=== PATIENT | female | born 1945 | race Caucasian/White ===

== ENCOUNTER 2018-07-29 14:59 | Outpatient (CLI) | payer MEDICARE, BC ==
--- NOTE | 2018-07-29 15:44 | RAD ---
CERVICAL SPINE: INDICATIONS: Neck pain. TECHNIQUE: Lateral views obtained in neutral, flexion, and extension positions. FINDINGS: The cervical vertebrae maintain height. Disk spaces are preserved. In the neutral position, there i s slight anterolisthesis at C5-C6, measured at approximately 2 mm. This does exacerbate with flexion , where it measures approximately 4 mm. It reduces slightly with extension. Mild degenerative spurring at C5, C6, and C7. Mild facet hypertrophy. IMPRESSION: There are degenerative changes of the cervical spine, as described. Mild anterolisthesis at C5-C6, a s described. POS: [facility]
--- NOTE | 2018-07-29 15:54 | MRI ---
MR CERVICAL SPINE WITHOUT CONTRAST INDICATION: 72-year-old female with neck pain and bilateral hand numbness TECHNIQUE: Multiplanar multisequence MR images were obtained of the cervical spine without contrast. COMPARISON: None FINDINGS: Posterior fossa: Within normal limits. Bone marrow signal intensity: Normal Spinal alignment: Normal. Craniocervical junction: Normal appearing. Prevertebral and perivertebral soft tissues: Visualized soft tissues appear within normal limits. Vertebral levels: C2-C3: No appreciable central canal or neuroforaminal narrowing. C3-4: There is severe left and mild right facet joint degenerative change. There is uncal vertebral h ypertrophy. There is moderate left neural foraminal narrowing. C4-5: There is uncovertebral hypertrophy and facet joint degenerative change inducing moderate left neural foraminal narrowing. C5-C6: There is a left foraminal protrusion inducing moderate left neural foraminal narrowing. There is moderate to severe left and mild right facet joint degenerative change. C6-C7:, There is moderate to severe left and mild right facet joint degenerative change. There is no appreciable central canal or neural foraminal narrowing. C7-T1: There is severe facet joint degenerative change. There is grade 1 anterolisthesis. IMPRESSION: 1. Multilevel spondylosis of the cervical spine. 2. Moderate left neural foraminal narrowing at C3-4. 3. Moderate left neural foraminal narrowing at C4-5. 4. Moderate moderate left neural foraminal narrowing at C5-6.
== END 2018-07-29 15:00 | disposition home or self-care (01) ==
LOC: SCSMRI 14:59
PROVIDERS: ATTEND Neurological Surgery
DX: M47.22 Other spondylosis with radiculopathy, cervical region (principal); M43.12 Spondylolisthesis, cervical region; M48.02 Spinal stenosis, cervical region
CPT/HCPCS: 72040; 72141

== ENCOUNTER 2019-07-27 05:51 | Outpatient (CLI) | payer MEDICARE, BC, OTHER ==
[2019-07-27 12:36] LABS: Hemoglobin 13.7 g/dL (12.0-16.0); Mean Corpuscular HGB CONC 33.1 g/dL (32.0-36.0); Mean Corpuscular Hemoglobin 31.2 pg (27.0-31.0); Mean Corpuscular Volume 94.3 fL (78.0-98.0); Mean Platelet Volume 7.3 fL (7.4-10.4); Platelet Count 294 thou/uL (130-400); RBC Distribution Width 11.5 % (11.5-14.5); Red Blood Cell (RBC) Count 4.38 mill/uL (4.20-5.40); White Blood Cell (WBC) Count 7.9 thou/uL (4.8-10.8)
[2019-07-27 12:45] LABS: PTT 24.2 SEC (22.9-36.1); Prothrombin Time 12.7 sec (12.0-14.7)
[2019-07-27 12:57] LABS: Anion Gap 16 mmol/L (10-20); BUN (Urea Nitrogen) 12 mg/dL (9.8-20.1); Calc. Creatinine Clearance 0 mL/min (70-130); Calcium 9.3 mg/dL (7.8-10.44); Carbon Dioxide 23 mmol/L (23-31); Chloride 103 mmol/L (98-107); Estimated GFR-MDRD 68; Glucose 83 mg/dL (83-110); Potassium 3.7 mmol/L (3.5-5.1); Sodium 138 mmol/L (136-145)
[2019-07-27 17:22] LABS: SARS-CoV-2 MS2 Positive; SARS-CoV-2 N Gene Negative; SARS-CoV-2 S Gene Negative; SARS-CoV-2 orf1ab Negative
== END 2019-07-27 05:52 | disposition home or self-care (01) ==
LOC: LABBT 05:51
PROVIDERS: ATTEND Neurological Surgery
DX: Z01.812 Encounter for preprocedural laboratory examination (principal); Z11.59 Encounter for screening for other viral diseases; G56.01 Carpal tunnel syndrome, right upper limb; G56.21 Lesion of ulnar nerve, right upper limb
CPT/HCPCS: 80048; 85027; 85610; 85730; U0002; 87635; U0003

== ENCOUNTER 2019-07-31 10:01 | Day surgery (SDC) | payer MEDICARE, BC ==
[2019-07-27 11:51] VITALS: BMI 30.9
[2019-07-31] MEDS ORDERED: Ketorolac Tromethamine 30 MG/ML VIAL ONE (11:32)
[2019-07-31] MEDS ORDERED: Lidocaine 1% PF 5 ML VIAL ONE (11:32)
[2019-07-31] MEDS ORDERED: PROPOFOL 200 MG/20 ML VIAL ONE (11:32)
[2019-07-31] MEDS ORDERED: Dexamethasone 20 MG/5 ML VIAL ONE (11:32)
[2019-07-31] MEDS ORDERED: Ondansetron PF 4 MG/2 ML Vial ONE (11:32)
[2019-07-31] MEDS ORDERED: diphenhydrAMINE 50 MG/ML VIAL ONE (11:32)
[2019-07-31] MEDS ORDERED: Fentanyl 100 MCG/2 ML VIAL ONE ×2 (13:24→15:51)
[2019-07-31] MEDS ORDERED: Lidocaine 1% (PF) 30 ML VIAL ONE (13:25)
[2019-07-31] MEDS ORDERED: Midazolam HCl 2 mg/2 ml Vial ONE (13:42)
[2019-07-31] MEDS ORDERED: Acetaminophen/Codeine 30-300mg Tablet PO PRN (15:39)
[2019-07-31] MEDS ORDERED: Morphine 2 MG/ML SYRINGE SLOW IVP PRN (15:39)
[2019-07-31] MEDS ORDERED: Promethazine 25 MG TAB PO PRN (15:39)
[2019-07-31] MEDS ORDERED: HYDROcodone/Acetaminophen 7.5/325 mg Tablet PO PRN (15:39)
[2019-07-31] MEDS ORDERED: Mag-Al 1200 mg/1200 mg/30 ML UDCUP PO PRN (15:39)
[2019-07-31] MEDS ORDERED: traMADol HCl 50 MG TAB PO PRN (15:39)
[2019-07-31] MEDS ORDERED: diphenhydrAMINE 25 MG CAP PO PRN (15:39)
[2019-07-31] MEDS ORDERED: tiZANidine HCl 4 MG TAB PO PRN (15:39)
[2019-07-31] MEDS ORDERED: Milk Of Magnesia 30 ML UDCUP PO PRN (15:39)
[2019-07-31] MEDS ORDERED: Acetaminophen 325 MG TAB PO PRN (15:39)
[2019-07-31] MEDS ORDERED: Ondansetron PF 4 MG/2 ML Vial IVP PRN (15:39)
[2019-07-31] MEDS ORDERED: Prochlorperazine 10 MG/2 ML VIAL IM PRN (15:39)
[2019-07-31] MEDS ORDERED: Sodium Chloride 0.9% 1,000 ML IV SCH (15:45)
[2019-07-31] MEDS ORDERED: CEFAZOLIN 2 GM in Premix Bag 1 BAG IVPB SCH ×2 (15:45→19:00)
[2019-07-31] MEDS ORDERED: FLUoxetine HCl 20 MG CAP PO SCH (21:00)
[2019-07-31] MEDS ORDERED: Gabapentin 300 MG CAP PO SCH (21:00)
--- NOTE | 2019-07-31 22:57 | OP ---
DATE OF PROCEDURE: 07/31/2019 ATHLETIC EVENTS SCORER: Corey Coburn PA-C PREOPERATIVE INDICATION: Treat pain and prevent neurological deterioration. 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 POSTOPERATIVE DIAGNOSES: Right carpal tunnel syndrome and right cubital tunnel syndrome. PROCEDURES PERFORMED: Decompression of right carpal tunnel, decompression with subcutaneous transposition right ulnar nerve at the elbow. PREOPERATIVE MEDICATIONS: Ancef 2 g IV. DRAIN NUMBER: Zero. DRAIN TYPE: None. DESCRIPTION OF PROCEDURE: The patient was brought to the operating room. LMA general anesthesia was induced. The right arm was placed in an armboard. The entire arm was sterilely prepped and draped following the axilla. We planned an incision behind the medial epicondyle and at the wrist. Under our planned incisions, we infused local anesthetic. We began with the carpal tunnel release. With a 15 blade knife, we made a linear incision from the distal palmar crease into the palm in line with the web space between the ring and middle finger. We controlled bleeding with gentle bipolar cautery. We placed a self-retaining retractor. We brought a fresh knife into the field and cut through the transverse carpal ligament until we entered into the carpal tunnel. A Sodus 4 dissector was placed in the carpal tunnel to protect the nerve and we cut distally and proximally until we put scissors into the carpal tunnel. We advanced scissors into the palm until we encountered the palmar fat pad. Then, we advanced scissors proximally into the wrist until there was no further transverse carpal ligament. We irrigated with bacitracin irrigation. We closed this wound with vertical mattress 4-0 Prolene sutures. We turned our attention to the elbow. We made a curvilinear incision behind the medial epicondyle extending proximally into the arm and distally into the forearm. We controlled bleeding with gentle bipolar cautery. We dissected down to the fascial layer. We identified the medial epicondyle and dissected deep on its posterior aspect. We encountered all the nerve rather quickly. We dissected circumferentially around the nerve and both proximally and distally until we had enough length for transposition. We cut the intermuscular septum above the elbow to allow for easy transposition and slightly cut the flexor carpi ulnaris to allow the nerve to return to its normal course without undue stretch when the elbow was extended. We irrigated with bacitracin irrigation. We tacked down the subcutaneous fat to the medial epicondyle to keep the nerve transposed. After our tack-down sutures were tied, we made sure the nerve was still free and loose. We then closed this wound in anatomic layers and applied sterile dressing. An David wrap was placed over the entire arm. This was a clean case, no contamination. Job ID: [id number]
[2019-08-01] MEDS ORDERED: Tamsulosin HCl 0.4 MG CAP PO SCH (06:00)
[2019-08-01] MEDS ORDERED: Aspirin 81 mg Enteric Coated Tablet PO SCH (09:00)
[2019-08-01] MEDS ORDERED: Lisinopril/Hydrochlorothiazide 20/25 mg Tablet PO SCH (09:00)
[2019-08-01] MEDS ORDERED: Estradiol 1 MG TAB PO SCH (09:00)
== END 2019-07-31 17:30 | disposition home or self-care (01) ==
LOC: SDC 10:01
PROVIDERS: ATTEND Neurological Surgery
PROC: 01N50ZZ Release Median Nerve, Open Approach (ICD-10-PCS; principal; 2019-07-31)
PROC: 01N40ZZ Release Ulnar Nerve, Open Approach (ICD-10-PCS; 2019-07-31)
DX: G56.23 Lesion of ulnar nerve, bilateral upper limbs (principal); G56.03 Carpal tunnel syndrome, bilateral upper limbs; I10 Essential (primary) hypertension; Z79.82 Long term (current) use of aspirin; Z79.899 Other long term (current) drug therapy; Z88.5 Allergy status to narcotic agent; Z88.8 Allergy status to other drugs, medicaments and biological substances; Z91.040 Latex allergy status; Z96.653 Presence of artificial knee joint, bilateral
CPT/HCPCS: J0690; J1100; J1200; J1885; J2001; J2250; J2405; J2704; J3010

== ENCOUNTER 2022-05-25 10:52 | Outpatient (CLI) | payer MEDICARE, BC | END 2022-05-25 10:53 | disposition home or self-care (01) | LOC: BICRAD 10:52 | PROVIDERS: ATTEND Internal Medicine | DX: M79.674 Pain in right toe(s) (principal); M19.071 Primary osteoarthritis, right ankle and foot; Z98.890 Other specified postprocedural states ==

== ENCOUNTER 2023-12-24 07:17 | Day surgery (SDC) | payer MEDICARE, BC ==
[2023-12-24 07:50] LABS: #Basophils 0.08 10x3/uL (0.0-0.2); %Eosinophils 3.9 % (0.0-10.0); %Lymphocytes 20.3 % (21.0-51.0); %Monocytes 8.5 % (0.0-10.0); %Neutrophils 65.9 % (42.0-75.0); Hematocrit 39.1 % (36.0-47.0); Hemoglobin 13.1 g/dL (12.0-16.0); Mean Corpuscular HGB CONC 33.5 g/dL (32.0-36.0); Mean Corpuscular Hemoglobin 31.3 pg (27.0-31.0); Mean Corpuscular Volume 93.3 fL (78.0-98.0); Mean Platelet Volume 9.2 fL (7.4-10.4); Platelet Count 327 10x3/uL (130-400); RBC Distribution Width 13.5 % (11.5-14.5); Red Blood Cell (RBC) Count 4.19 mill/uL (4.20-5.40)
[2023-12-24 08:10] LABS: INR-International Normal Ratio 1.1; PTT 25.9 sec (22.9-36.1); Prothrombin Time 13.7 sec (12.0-14.7)
[2023-12-24] MEDS ORDERED: fentaNYL 50 mcg/mL 1 mL Vial ONE (09:14)
[2023-12-24] MEDS ORDERED: Midazolam HCl 2 mg/2 ml Vial ONE (09:15)
[2023-12-24] MEDS ORDERED: Acetaminophen 325 MG TAB ONE (11:51)
== END 2023-12-24 13:16 | disposition home or self-care (01) ==
LOC: ULT 07:17
PROVIDERS: ATTEND Physician Assistant Medical
DX: R74.8 Abnormal levels of other serum enzymes (principal)
CPT/HCPCS: 36415; 47000; 76942; 85025; 85610; 85730; 88307; J2250; J3010

== ENCOUNTER 2024-03-17 14:08 | Outpatient (CLI) | payer MEDICARE, BC | END 2024-03-17 14:09 | disposition home or self-care (01) | LOC: SCSMRI 14:08 | PROVIDERS: ATTEND Psychiatry & Neurology Neurology | DX: M48.061 Spinal stenosis, lumbar region without neurogenic claudication (principal); M19.042 Primary osteoarthritis, left hand; M18.11 Unilateral primary osteoarthritis of first carpometacarpal joint, right hand; Z98.1 Arthrodesis status | CPT/HCPCS: 72158 ==